=== PATIENT | female | born 1995 | race Caucasian/White ===

== ENCOUNTER 2019-10-18 16:07 | Outpatient (CLI) | payer OTHER, SELFPAY ==
--- NOTE | ~2019-10-18 | US_ITS ---
EXAMINATION: US OB /maternal detail EXAM DATE: 10/18/2019 17:46 INDICATION: For anatomy, dating. 2nd trimester. TECHNIQUE: Pelvic obstetrical transabdominal sonogram was performed by a technologist. There are mu ltiple grayscale and Doppler images available for interpretation. There are no earlier studies of is gestation for comparison. FINDINGS: There is a single fetus identified in breech presentation with a heart rate of 145 beats pe r minute. The placenta is located in the fundal position. There is no sonographic evidence of retrop lacental hemorrhage identified. There is subjectively expected amount of amniotic fluid. BIOMETRIC DATA: Biparietal diameter (BPD): 4.4cm ----------------> 19 weeks 2 days. Head circumference (HC): 17.0 cm ----------------> 19 weeks 4 days. Abdominal circumference (AC): 14.0 cm ----------> 19 weeks 3 days. Femur length (FL): 3.3 cm --------------------------> 20 weeks 2 days. These measurements are concordant. HC/AC ratio is 1.21 (The 5th -- 95th percentile range is 1.08-1.26. Estimated weight is 314 g +/- 47 g. This is the 88th percentile when the currently reported cl inical gestation age 19 weeks 0 days, clinical estimated date of delivery (RUFUS-OPE) 03/13 is used. Fe sana estimated gestational age based on measurements from this exam is 19 weeks 5 days, with an estima ondina date of delivery (RUFUS-AUA) 03/08. ANATOMIC SURVEY: The following anatomy is identified and is sonographically normal in appearance: Cerebral ventricles Cerebellum Cisterna magna Nuchal fold CTL-spine Four-chamber heart Diaphragm Stomach Kidneys Bladder Three-vessel cord Cord insertion IMPRESSION: 1. Single fetus in breech presentation with heart rate 145 beats per minute. 2. Estimated weight of 314 grams, 88th percentile using the currently reported clinical gestat ion age of 19 weeks 0 days, RUFUS(OPE) 03/13. 3. Normal anatomic survey. Reviewed, dictated and finalized at location G. IMPRESSION: 1. Single fetus in breech presentation with heart rate 145 beats per minute. 2. Estimated weight of 314 grams, 88th percentile using the currently re ported clinical gestation age of 19 weeks 0 days, RUFUS(OPE) 03/13. 3. Normal anatomic survey.
== END 2019-10-18 16:08 | disposition home or self-care (01) ==
PROVIDERS: Visit Provider Obstetrics & Gynecology Gynecology
DX: Z36.9 Encounter for antenatal screening, unspecified (principal); Z3A.00 Weeks of gestation of pregnancy not specified
CPT/HCPCS: 76805

== ENCOUNTER 2019-12-01 17:04 | Outpatient (CLI) | payer OTHER, SELFPAY ==
--- NOTE | ~2019-12-01 | US_ITS ---
EXAMINATION: US OB follow up DATE: 12/01/2019 17:51 INDICATION: Dating. Second trimester. TECHNIQUE: Real-time ultrasound of the pelvis was performed. COMPARISON: Ultrasound 10/18/2019 FINDINGS: There is a single living fetus in breech presentation. The placenta is fundal. heart rate is 1 42 beats per minute (bpm). The amniotic fluid index is 16.4 cm, which is normal. The following biometric data were obtained: Biparietal diameter (BPD): 6.4 cm; head circumference (HC): 24.0 cm; abdominal circumference (AC): 21 .8 cm; femur length (FL): 4.9 cm. These measurements are concordant. Estimated weight is 925 g +/- 139 g, which correlates with 84th percentile when 03/13/20 is use d as estimated date of delivery. As single measurements, these parameters are each equal to the following estimated gestational ages w ith ranges of +/- 2 standard deviations: BPD: 25 weeks 6 days. HC: 26 weeks 0 days. AC: 26 weeks 2 days. FL: 26 weeks 4 days. estimated gestational age based solely on measurements from this exam is 26 weeks 1 days +/- 1 weeks 6 days. IMPRESSION: 1. Single living fetus in breech presentation. 2. Estimated weight is 925 g +/- 139 g, which correlates with 84th percentile when 03/13/20 is used as estimated date of delivery. Reviewed, dictated and finalized at location A. IMPRESSION: 1. Single living fetus in breech presentation. 2. Estimated weight is 925 g +/- 139 g, which correlates with 84th perce ntile when 03/13/20 is used as estimated date of delivery.
== END 2019-12-01 17:05 | disposition home or self-care (01) ==
PROVIDERS: Visit Provider Obstetrics & Gynecology Gynecology
DX: O36.62X0 Maternal care for excessive fetal growth, second trimester, not applicable or unspecified (principal); Z3A.26 26 weeks gestation of pregnancy
CPT/HCPCS: 76816

== ENCOUNTER → 2020-01-15 08:53 | Outpatient (CLI) | payer OTHER, SELFPAY ==
--- NOTE | ~2020-01-15 | US_ITS ---
EXAMINATION: US OB follow up DATE: 01/15/2020 09:21 INDICATION: Size less than dates TECHNIQUE: Real-time transabdominal obstetric ultrasound. FINDINGS: Comparison to multiple prior studies sequentially, with oldest reviewed study dated 2019. There is a single living fetus in vertex presentation. The placenta is anterior without placenta pre via. cardiac activity and movement is noted with a heart rate of 1:30 beats per minute. The amniotic fluid volume is normal. ROSIE measures 16.2 cm The following biometric data were obtained: BPD: 83mm corresponds to gestational age 33 weeks 4 days. Head circumference: 312mm corresponds to gestational age 35 weeks 0 days. Abdominal circumference: 281mm corresponds to gestational age weeks days. Femur length: 67mm corresponds to gestational age 34 weeks 4 days. Estimated weight: 2154grams +/- 323grams.] IMPRESSION: 1. Single living intrauterine presentation with an estimated gestational age of 32 weeks 3 days by inititial ultrasound. Appropriate interval growth. 2. Normal placenta. 3: Normal ROSIE measures 16.2 cm. Reviewed, dictated and finalized at location A. IMPRESSION: 1. Single living intrauterine presentation with an estimated gestati onal age of 32 weeks 3 days by inititial ultrasound. Appropriate interval feta l growth. 2. Normal placenta. 3: Normal ROSIE measures 16.2 cm.
== END ==
PROVIDERS: Visit Provider Nurse Practitioner
DX: O36.5990 Maternal care for other known or suspected poor fetal growth, unspecified trimester, not applicable or unspecified (principal); Z3A.32 32 weeks gestation of pregnancy
CPT/HCPCS: 76816

== ENCOUNTER 2020-03-05 01:06 | Inpatient (IN) | payer OTHER, SELFPAY ==
[2020-03-05] VITALS (100 sets, daily range): BP systolic 84–137; BP diastolic 39–113; PULSE 73–196; RESP 17; TEMP 36.6–37.4; O2SAT 95–100; BMI 33.8
--- NOTE | 2020-03-05 01:06 | OBADM ---
This patient, Patricia Greco, admitted to the OB room Labor/Delivery/Recovery 106 for observation. Patient/family oriented to hospital policies and general routines including ID bracelet, bed and alarms, visiting hours, pain management, procedures, bathroom and other care routines, personal items, smoking policy, room service/diet, and visiting hours. Patient/Family are encouraged to report perceived risks to care and to ask questions if they do not understand what they are told or what they should do.
[2020-03-05] MEDS: fentaNYL CITRATE INJ (*CRX) 100 MCG/2 ML VIAL 50 MCG IV PUSH (04:21)
[2020-03-05] MEDS: LACTATED RINGERS 1,000 ML 125 ML IV CONT ×3 (07:20→15:11)
[2020-03-05 07:22] LABS: Basophils Percent Auto 0.3 % (0.2-1.2); Eosinophils Absolute Auto 0.1 K/mm3 (0-0.3); Eosinophils Percent Auto 0.5 % (0-4.4); Hematocrit 28.7 % (37.0-47.0); Hemoglobin 9.3 g/dL (12.0-15.0); Immature Granulocyte Absolute 0.08 K/mm3 (0.00-0.031); Immature Granulocyte Percent A 0.6 % (0-0.5); Lymphocytes Absolute Auto 1.81 K/mm3 (0.9-3.2); Lymphocytes Percent Auto 13.5 % (18.3-44.2); Mean Corpuscular HGB Conc 32.4 g/dl (32-36); Mean Corpuscular Hemoglobin 25.8 pg (26-34); Mean Corpuscular Volume 79.7 fl (80-100); Mean Platelet Volume 11.5 fl (7.4-10.4); Monocytes Absolute Auto 0.8 K/mm3 (0.1-0.6); Monocytes Percent Auto 5.8 % (2.6-8.5); Neutrophils Absolute Auto 10.7 K/mm3 (1.3-6.7); Neutrophils Percent Auto 79.3 % (45.5-73.1); Platelet Count Result 304 k/mm3 (150-375); Red Cell Distribution Width 14.5 % (11.5-14.5); White Blood Count 13.5 K/mm3 (4.5-10.0)
[2020-03-05] MEDS: OXYTOCIN 30 UNITS/NS 500 ML 30 UNITS/500 ML BAG IV CONT (11:09)
[2020-03-05] MEDS: ONDANSETRON INJ 4 MG/2 ML VIAL IV PUSH (16:11)
--- NOTE | 2020-03-05 18:43 | WPDOBADMIT ---
Obstetrics - Admit Note Admission Note: complete and pushing record reviewed. No pertinent additions to the history and/or any subsequent changes in the physical findings that are not consistent with the expected course of the were found. Additions to the history and/or subsequent changes in the physical findings follow. None.
--- NOTE | 2020-03-05 18:43 | PM.OBPRVD ---
OB - Delivery Note Procedure Delivery date: 03/05/20 Procedure: events: Labor Augmentation Intrapartal events: None Induction method: none Delivery augmentation: pitocin Delivery monitor: external FHT and external uterine Route of delivery: Episiotomy description: Midline Laceration Description: Perineal - 2nd Degree Delivery repair: vicryl Specimen: Yes Quantitative Blood Loss (ml): 100 Anesthesia type: Epidural Disposition: floor Baby Date of : 03/05/20 Time of : 18:23 Weeks of gestation at delivery: 38 Infant gender: Female Weight (pounds): 7 Weight (ounces): 13 presentation: vertex position: Left Occiput Anterior cord vessel description: 3 Vessels and Clamped/Cut score one minute: 8 score five minutes: 9
[2020-03-05] MEDS: OXYTOCIN 30 UNITS/NS 500 ML 30 UNITS/500 ML BAG 125 UNITS IV CONT (19:01)
[2020-03-05] MEDS: IBUPROFEN 600 MG TABLET PO (19:13)
[2020-03-05] MEDS: WITCH HAZEL 40 PADS 1 PAD TOPICAL (19:13)
[2020-03-05] MEDS: BENZOCAINE 20% AER SPR (*SP) 56 GM CAN 1 SPRAY TOPICAL (19:14)
--- NOTE | 2020-03-05 21:06 | OBPPTRN ---
Patient transferred to post room # 285 via wheelchair. Support person present. Oriented to unit, room, information board, rooming in, admission packet and security measures. Patient verbalizes understanding.
[2020-03-05] MEDS: ACETAMINOPHEN 325 MG TABLET 650 MG PO (22:25)
[2020-03-06] MEDS: IBUPROFEN 600 MG TABLET PO ×3 (04:20→19:07)
[2020-03-06 04:30] LABS: Hematocrit 29.5 % (37.0-47.0); Hemoglobin 9.5 g/dL (12.0-15.0)
[2020-03-06 07:50] VITALS: BP 119/76; PULSE 72; RESP 18; TEMP 36.8; O2SAT 100
[2020-03-06] MEDS: POLYSACCHARIDE IRON COMPLEX 150 MG CAPSULE PO ×2 (09:06→15:56)
[2020-03-06] MEDS: DOCUSATE SODIUM 100 MG CAPSULE PO ×2 (09:06→15:56)
[2020-03-06 11:04] LABS: Rapid Plasma Reagin Non-Reactive (NonReactive)
--- NOTE | 2020-03-06 13:13 | WPDANLDPN2 ---
Anes-Prog Note L&D Date/Time: 03/06/20 13:13 Comfortable throughout: labor and delivery Neuraxial method: epidural Epidural/Spinal procedure site: clean & non-tender Neuro status: Neuro function grossly intact. Cardiovascular status: normal Respiratory status: normal Airway patency: baseline Mental status: baseline Post-Op hydration status: normal Vital Signs: Last Vital Signs Temp 36.8 C 03/06/20 07:50 Pulse 72 03/06/20 07:50 Resp 18 03/06/20 07:50 BP 119/76 03/06/20 07:50 Pulse Ox 100 03/06/20 07:50 Pain score (VAS): 0/10. Patient resting in bed at time of assessment, appears comfortable. I/O: Intake & Output 03/05/20 03/06/20 03/06/20 23:59 07:59 15:59 Intake Total 500 Output Total 250 Balance 250 Post-procedural complaints: none Patient feedback: Patient satisfied with anesthetic care.
--- NOTE | 2020-03-06 14:20 | P.PNOB_ITS ---
OB - PN: Subj Subjective Date/time seen: 03/06/20 14:20 doing well no complaints OB - PN: Obj Data Labs CBC & Chem 7: 03/06/20 04:06 Labs: Laboratory Results - last 24 hr 03/05/20 03/06/20 07:10 04:06 Hgb 9.5 L Hct 29.5 L RPR Non-reactive OB - PN A/P Assessment and Plan (1) (normal spontaneous vaginal delivery): Code(s): O80 - Encounter for full-term uncomplicated delivery Status: Acute Assessment and Plan: continue with pp care. d/c home Time Spent With Patient Time: Total time spent is greater than 50% in coordination of care (as documente d) at patient's floor/unit and/or counseling patient: Exam GI: Other: ff below umbilicus
[2020-03-06] MEDS: BENZOCAINE 20% AER SPR (*SP) 56 GM CAN 1 SPRAY TOPICAL (15:57)
[2020-03-06] MEDS: WITCH HAZEL 40 PADS 1 PAD TOPICAL (15:57)
[2020-03-07 12:18] VITALS: BP 125/74; PULSE 78; RESP 20; TEMP 36.7; O2SAT 100
--- NOTE | 2020-03-27 08:12 | PM.OBDSVD ---
DS: Admitting Diagnosis Admitting Diagnosis Admitting Diagnosis: labor DS: Discharge Diagnosis Discharge Diagnosis (1) (normal spontaneous vaginal delivery): Code(s): O80 - Encounter for full-term uncomplicated delivery Status: Acute OB - DS: Summary OB Procedures : Ultrasound OB Procedures Intrapartum: Spontaneous Vag Delivery OB Procedures: : None Time Spent with Patient Time attestation: Total time spent providing and/or coordinating discharge services: Discharge Plan Discharge Attending physician on discharge: Freddie Deleon Discharging Clinician: Freddie Deleon Patient Disposition: Home, Self-Care Activity: may shower Diet: regular Discharge Instructions: Education: Mom and Baby Guide Given to: Mother Follow-Up: Call your delivering provider's office for an appointment to be seen in: 6 Weeks Mom and baby should come to the [facility] for the follow-up appointment. Appointment Date/Time: March 07, 2020 at 11:00 am What to expect at your follow-up visit: Physical Assessment Call [phone] if you are unable to keep your appointment time. BREAST CARE: * Wear a snug supportive bra. * For engorgement discomfort: Breast Feeding: * Apply warm moist washcloths * Express milk as needed to relieve engorgement * Wear loose clothing Bottle Feeding: * May apply ice packs * For sore nipples: * Identify correct latch-on * Apply warm moist washcloths before and after nursing * Air dry nipples after nursing * May apply Lansinoh cream to nipples ABDOMINAL INCISION: (if applicable) * Allow incision to air dry * Do NOT use lotions for powders on your incision * When showering, allow soap and water to run over the incision, but do not wash incision EPISIOTOMY/PERINEAL CARE: * Until bleeding stops, use your alvaro bottle after urinating * Change your pad frequently throughout the day * You may take sitz baths several times a day (fill your bathtub with warm water and soak for 20 minutes.) Do NOT bathe in the water * No tub baths until seen by your physician - You may shower ACTIVITY: * Rest as much as possible. * Do not exercise or lift anything heavier than your baby (such as laundry or other children.) * Avoid stairs or driving as much as possible. * Do not put anything into the vagina. No douching, tampons, or sexual activity until seen by physician. NOTIFY PHYSICIAN IF YOU HAVE ANY QUESTIONS OR IF ANY OF THE FOLLOWING SYMPTOMS OCCUR: * If your episiotomy or incision becomes red, swollen, or more painful than what you have experienced in the hospital. * If your vaginal bleeding becomes foul smelling. * If your vaginal bleeding becomes more heavy than a period or if your bleeding changes from pink to bright red. However, you may pass an occasional walnut-sized clot once or twice for the first week . * If you experience a sharp, shooting pain in you calves. * If you discover a hard, reddened area on your breast or if you experience flu-like symptoms. DIET: * Eat regular, well-balanced meals. * Drink plenty of fluids daily. If , drink to thirst. Stand Alone Forms: General Discharge Information Follow-up/Referrals: Freddie Deleon MD [Physician] - Discharge Medications: Continued prenat.vits,maikol,[id number] Tablet 1 tablet PO DAILY RF: 0 Date of admission: 03/05/20 06:55 Primary Care Provider: PHYSICIAN,FORMULATION TECHNICIAN Admitting Provider: Freddie Deleon Attending physician on admission: Freddie Deleon Condition: Stable
== END 2020-03-06 20:55 | disposition home or self-care (01) | DRG 807 ==
LOC: ANHLDR 06:58 → ANHOB2 21:11
PROVIDERS: Admitting Provider Obstetrics & Gynecology; Visit Provider Obstetrics & Gynecology
DX: O70.1 Second degree perineal laceration during delivery (principal); Z37.0 Single live birth; Z3A.38 38 weeks gestation of pregnancy
CPT/HCPCS: 36415; 85014; 85018; 85025; 86592; 86850; 86900; 86901; A9270; J2405; J2590; J2795; J3010; J7120